=== PATIENT | male | born 1970 | race Caucasian/White ===

== ENCOUNTER 2020-11-24 14:16 | Outpatient (REF) | payer BC, SELFPAY | END 2020-11-24 14:17 | disposition home or self-care (01) | LOC: HO.LAB 14:16 | PROVIDERS: Visit Provider Internal Medicine | DX: Z20.822 Contact with and (suspected) exposure to COVID-19 (principal) | CPT/HCPCS: 36415; C9803; U0003; U0005 ==

== ENCOUNTER 2023-03-16 17:32 | Outpatient (REF) | payer BC, SELFPAY ==
[2023-03-17 09:36] LABS: CT PCR NOT DETECTED (Not Detect.); NG PCR NOT DETECTED (Not Detect.)
== END 2023-03-16 17:33 | disposition home or self-care (01) ==
LOC: HO.LNP 17:32
PROVIDERS: Visit Provider Nurse Practitioner Family
DX: Z20.2 Contact with and (suspected) exposure to infections with a predominantly sexual mode of transmission (principal)
CPT/HCPCS: 0353U

== ENCOUNTER 2023-03-28 09:18 | Outpatient (REF) | payer BC, SELFPAY ==
[2023-03-28 11:17] LABS: MANUAL DIFF FLAG NO
[2023-03-28 11:36] LABS: Basophils Percent Auto 0.5 % (0-2); Eosinophils Absolute Auto 0.1 X10*3/uL (0.0-0.4); Eosinophils Percent Auto 1.6 % (0-4); Hematocrit 49.2 % (42.0-52.0); Hemoglobin 16.1 g/dl (14.0-18.0); Imm Gran Abs Auto 0.04 X10*3/uL (0.00-0.03); Imm Gran Pct Auto 0.5 % (0.0-0.4); Lymphocytes Percent Auto 37.3 % (20-40); Mean Corpuscular HGB Conc 32.7 g/dl (31.0-36.0); Mean Corpuscular Hemoglobin 28.5 pg (27.0-33.0); Mean Corpuscular Volume 87.1 fL (80.0-98.0); Mean Platelet Volume 9.5 fL (9.4-12.4); Monocytes Absolute Auto 0.6 X10*3/uL (0.1-1.2); Monocytes Percent Auto 6.8 % (2-11); Neutrophils Absolute Auto 4.3 x10*3/uL (2.0-8.3); Neutrophils Percent Auto 53.3 % (45-73); Platelet Count 266 X10*3/uL (160-400); Red Blood Count 5.65 X10*6/uL (4.60-5.80); Red Cell Distribution Width 12.9 % (11.0-16.0); White Blood Count 8.1 X10*3/uL (4.8-10.8)
[2023-03-28 12:01] LABS: Lipase 28 U/L (8-78)
== END 2023-03-28 09:19 | disposition home or self-care (01) ==
LOC: HO.WFDLDS 09:18
PROVIDERS: Visit Provider Nurse Practitioner Family
DX: R10.9 Unspecified abdominal pain (principal)
CPT/HCPCS: 36415; 83690; 85025

== ENCOUNTER 2023-08-04 11:24 | Emergency (ER) | payer BC, SELFPAY ==
--- NOTE | ~2023-08-04 | XR_ITS ---
EXAMINATION: XR HAND, LEFT CLINICAL INFORMATION: Crush injury third and fourth fingers COMPARISON: None available. TECHNIQUE: PA, lateral, and oblique views of the left hand. FINDINGS: No acute visible fracture or dislocation. Joint spaces and alignment are maintained. Soft tissues are unremarkable. XR/XR hand LT min 3V IMPRESSION: No acute visible fracture or dislocation.
[2023-08-04 11:35] VITALS: BP 157/102; PULSE 84; RESP 18; TEMP 36; O2SAT 96; BMI 39.5
--- NOTE | 2023-08-04 11:36 | ED_ITS ---
HPI - General Adult General Chief complaint: Extremity Injury, Upper Stated complaint: crushed L hand fingers Time Seen by Provider: 08/04/23 11:45 Source: patient, RN notes reviewed and old records reviewed Mode of arrival: ambulatory History of Present Illness HPI narrative: 53-year-old male with no significant past medical history presenting to the ED complaining of crush wound to left 3rd and 4th digits s/p fixing exercise bike [employer]. States was trying to fix bike and looked otherwise and hand got caught in mick system. Tetanus up-to-date. Reports associated numbness/paresthesias. Denies injury to other area Onset (ago): hour(s) Related Data Home Medications Medication Instructions Recorded Confirmed clonidine HCl 0.1 mg tablet 0.1 mg PO BEDTIME 03/16/23 03/28/23 doxycycline hyclate 100 mg capsule 100 mg PO BID 03/16/23 03/28/23 gabapentin 100 mg capsule 100 mg PO BID 03/16/23 03/28/23 meloxicam 15 mg tablet 15 mg PO DAILY 03/16/23 03/28/23 omeprazole 20 mg capsule,delayed 0 mg PO BID 03/16/23 03/28/23 release rosuvastatin 40 mg tablet 40 mg PO DAILY 03/16/23 03/28/23 tizanidine 4 mg tablet 4 mg PO TID 03/16/23 03/28/23 Previous Rx's Medication Instructions Recorded doxycycline monohydrate 100 mg 100 mg PO BID 14 days #28 caps 03/16/23 capsule (Monodox) cephalexin 500 mg capsule 500 mg PO QID 7 days #28 caps 08/04/23 hydrocodone 5 mg-acetaminophen 325 1 tab PO Q8H PRN pain, severe 3 08/04/23 mg tablet days #9 tabs Allergies Allergy/AdvReac Type Severity Reaction Status Date / Time tramadol [From ULTRAM] AdvReac Unknown DELUSIONAL Verified 03/28/23 09:00 Review of Systems 2 Review of Systems: Constitutional: No Fever, No Chills ENT/Mouth: No Ear Pain, No Nasal Congestion, No sore throat, No Rhinorrhea, No Swallowing Difficulty Cardiovascular: No Chest Pain, No SOB Respiratory: No Cough, No Sputum Gastrointestinal: No Nausea, No Vomiting, No Abdominal pain Genitourinary: No Dysuria, No Urinary Frequency, No Hematuria, No Flank Pain Musculoskeletal: + joint pain, No Myalgias, + Joint Swelling Skin: +skin Lesions, No rash Neuro: No Weakness, + Numbness, + Paresthesias Yes all other systems are reviewed and are negative Constitutional: Constitutional: Reports as per HPI [facility] Past Medical History Attestation statement: The following information was validated with the patient. Source: old records reviewed Social History Social History Patient Tobacco Use Status: Never used Tobacco Advance Directives: No Physical Exam ED Vital Signs: Vital Signs - 24 hr 08/04/23 11:35 Temperature 96.8 F Pulse Rate 84 Respiratory Rate 18 Blood Pressure 157/102 H Pulse Oximetry 96 Oxygen Delivery Method Room Air BMI result Body Mass Index 39.5 Const General: cooperative, healthy appearing and no acute distress Orientation/consciousness: patient oriented x3 Limitations: no limitations HENMT Head: Yes normal to inspection and Yes atraumatic Ears: hearing grossly normal bilaterally General nose exam: Normal external nose present Face and sinus: Yes normal facial exam Eyes General: appearance normal, both eyes and all related structures EOM: EOMs intact bilaterally Neck Neck: Yes normal visual inspection and Yes no meningeal signs Resp Effort & Inspection: normal respiratory effort and no respiratory distress Cardio Rate: regular rate Skin Rashes: no rashes Neuro General: patient oriented x3, tone normal and no meningeal signs Cranial nerves: Yes CN's II-XII intact bilaterally Gait exam (Neuro): Normal gait present Extrem Other: Left distal 3rd digit with swelling and tenderness greatest to distal palmar aspect. No fluctuance/induration or open wounds. No nail involvement Left 4th digit with proximal nail dislodged, nail bed intact. Small adjacent laceration. + subungual hematoma. Tender to palpation Full range of motion intact to all digits with pain. Finger to thumb opposition intact. Neurovascularly intact. Course Course Course Narrative: This is a rapid medical exam: Additional HPI, ROS, PE not included below will be deferred to primary provider. Patient is a 53-year-old right-hand dominant male presenting to the ED with crush injury to left 3rd and 4th fingers [employer]. States he was attempting to fix an exercise bike and was looking the other way and left hand got caught between the belt and mechanism. Damage to nail of 4th finger, pain and swelling. States his tetanus is UTD within past 5 years. Plan: x-ray XR hand LT min 3V IMPRESSION: No acute visible fracture or dislocation. > nail was placed back in to nail bed without complication. Subungual hematoma drained with nail trephination >Results discussed with patient including worrisome signs and symptoms and strict return precautions, and when to return to the emergency department. They verbalized understanding and feel safe for discharge at this time. Medications Administered Discontinued Medications Generic Name Dose Route Start Last Admin Trade Name Steven PRN Reason Stop Dose Admin Lidocaine HCl 10 ml 08/04/23 11:51 08/04/23 12:29 Lidocaine Hcl 1 % Mpf 5 Ml Vial INFILTRATI 08/04/23 11:52 10 ml ONCE ONE Administration Procedures Nail Trephination Location (finger): left and ring Sterile prep: betadine Method of drainage: nail cautery Procedure successful: Yes Patient tolerated procedure: No Complications Nerve Block Nerve Block 1: Local Anesthetic: lidocaine 1% Amount of anesthesia used (mL): 2.5 Side: left Nerve Blocks: digital Patient Tolerated Procedure: well and no complications Nerve Block 2: Local Anesthetic: lidocaine 1% Amount of anesthesia used (mL): 2.5 Side: left Nerve Blocks: digital Procedure Successful: Yes Patient Tolerated Procedure: well Complications: none Medical Decision Making Medical Decision Making MDM Narrative: 53-year-old male with no significant past medical history presenting to the ED complaining of crush wound to left 3rd and 4th digits s/p fixing exercise bike [employer]. On exam vital signs stable, in NAD, nontoxic appearing with physical exam as above with crush wound to left 3rd and 4th digit with nail involvement of the ring finger. Nail bed not disrupted. Sensation and range of motion intact. Neurovascularly intact. Concern for fracture/crush. Tetanus is up-to-date. No evidence of cellulitis or infection at this time Plan: X-rays, digital block, relocate nail. Case was discussed with the ED attending Dr. Donovan who evaluated patient and performed nail reduction Please refer to course for remaining clinical decision making, interpretation of labs/imaging results, and discussions with consultants and/or family members. Differential Diagnosis Differential Diagnoses: The differential diagnosis associated with the presentation includes As above Radiology Impression Discussion of test interpretation with radiology: I have reviewed the radiologist's reading. Independent Historian Clinical information obtained from an independent historian. History obtained from or confirmed by: Spouse External Record Review External record reviewed: Inpatient record, Office record, Outpatient record, Prior outpatient labs, Prior outpatient radiology, Primary care record and Outside ED record Tests considered The following testing was considered but not selected: As above Prescription Management I considered prescription management with: Pain Medication and Antibiotic Discharge Plan Discharge Clinical Impression: Crush injury, Injury of nail bed of finger, Subungual hematoma of fingernail Patient Disposition: Home, Self-Care Instructions: Subungual Hematoma (ED), Crush Injury (ED) Additional Instructions: Your x-ray does not show fracture Your nail was placed back into your nail bed Keep dressing on for 24 hours, please remove tomorrow morning and evaluate, apply topical antibiotic ointment like bacitracin or Neosporin. Keep dry and clean Keflex as an oral antibiotic please take as prescribed Follow-up with Orthopedics If symptoms persist or worsen, swelling persist area has drainage or pus or you have fever return to the ED Prescriptions: New cephalexin 500 mg capsule 500 mg PO QID 7 Days Qty: 28 0RF hydrocodone-acetaminophen 5-325 mg tablet 1 tab PO Q8H PRN (Reason: pain, severe) 3 Days Qty: 9 0RF Rx Instructions: Partial Fill upon patient request. No Action gabapentin 100 mg capsule 100 mg PO BID meloxicam 15 mg tablet 15 mg PO DAILY omeprazole 20 mg capsule,delayed release(DR/EC) 0 mg PO BID rosuvastatin 40 mg tablet 40 mg PO DAILY tizanidine 4 mg tablet 4 mg PO TID clonidine HCl 0.1 mg tablet 0.1 mg PO BEDTIME doxycycline hyclate 100 mg capsule 100 mg PO BID doxycycline monohydrate [Monodox] 100 mg capsule 100 mg PO BID 14 Days Qty: 28 0RF Rx Instructions: May dispense medication equivalent accepted by patient's insurance Referrals: [facility] [place] [facility] [Provider Group] Discharge Date/Time: 08/04/23 12:59
[2023-08-04] MEDS: Lidocaine HCl 1 % MPF 5 ML VIAL 10 ML INFILTRATI (12:29)
== END 2023-08-04 12:59 | disposition home or self-care (01) ==
PROVIDERS: Emergency Provider Internal Medicine
DX: S60.142A Contusion of left ring finger with damage to nail, initial encounter (principal); S60.132A Contusion of left middle finger with damage to nail, initial encounter; W31.89XA Contact with other specified machinery, initial encounter; Y93.9 Activity, unspecified; Y92.9 Unspecified place or not applicable; Y99.9 Unspecified external cause status
CPT/HCPCS: 11730; 73130; 99283; 99284

== ENCOUNTER 2024-03-21 19:30 | Emergency (ER) | payer BC, SELFPAY ==
--- NOTE | ~2024-03-21 | XR_ITS ---
EXAMINATION: XR CHEST 2 VIEWS CLINICAL INFORMATION: Shortness of breath. COMPARISON: None. TECHNIQUE: Frontal and lateral views of the chest were obtained. FINDINGS: The heart, great vessels, pulmonary vasculature and mediastinum are normal. The lungs show no focal infiltrate, effusion or pneumothorax. There is mild elevation of the right hemidiaphragm. There is no acute osseous abnormality. Cervicothoracic orthopedic hardware is noted. XR/XR chest 2V IMPRESSION: No active cardiopulmonary disease.
[2024-03-21 19:39] VITALS: BP 151/88; PULSE 108; RESP 24; TEMP 37.1; O2SAT 97; BMI 41.4
--- NOTE | 2024-03-21 19:40 | ED.SOB ---
HPI - SOB/Dyspnea General Chief Complaint: Dyspnea Stated Complaint: Difficulty breathing Time Seen by Provider: 03/22/24 00:50 History of Present Illness HPI Narrative: see additional note from 03/22/2024 Related Data Home Medications ?Medication ?Instructions ?Recorded ?Confirmed clonidine HCl 0.1 mg tablet 0.1 mg PO BEDTIME 03/16/23 03/28/23 doxycycline hyclate 100 mg capsule 100 mg PO BID 03/16/23 03/28/23 gabapentin 100 mg capsule 100 mg PO BID 03/16/23 03/28/23 meloxicam 15 mg tablet 15 mg PO DAILY 03/16/23 03/28/23 omeprazole 20 mg capsule,delayed 0 mg PO BID 03/16/23 03/28/23 release rosuvastatin 40 mg tablet 40 mg PO DAILY 03/16/23 03/28/23 tizanidine 4 mg tablet 4 mg PO TID 03/16/23 03/28/23 Previous Rx's ?Medication ?Instructions ?Recorded doxycycline monohydrate 100 mg 100 mg PO BID 14 days #28 caps 03/16/23 capsule (Monodox) cephalexin 500 mg capsule 500 mg PO QID 7 days #28 caps 08/04/23 hydrocodone 5 mg-acetaminophen 325 1 tab PO Q8H PRN pain, severe 3 08/04/23 mg tablet days #9 tabs albuterol sulfate 90 mcg/actuation 2 puff inhalation Q4-6H PRN 03/22/24 aerosol inhaler (ProAir HFA) shortness of breath or wheezing #8.5 grams amoxicillin 875 mg-potassium 1 tab PO BID #20 tabs 03/22/24 clavulanate 125 mg tablet prednisone 10 mg tablets in a dose 10 mg PO DIRECTED #48 ea 03/22/24 pack Allergies Allergy/AdvReac Type Severity Reaction Status Date / Time tramadol [From ULTRAM] AdvReac Unknown DELUSIONAL Verified 03/21/24 19:42 [facility] Social History Social History Patient Tobacco Use Status: Never used Tobacco Use of substances other than those prescribed or required for medical reasons: No Advance Directives: No Advance Directives Information Provided: No Do you have a plan to hurt others: No Plan Physical Exam Vital Signs: Vital Signs: Last Vital Signs Temp 98.9 F 03/22/24 02:09 Pulse 115 H 03/22/24 02:09 Resp 16 03/22/24 02:09 BP 140/77 H 03/22/24 02:09 Pulse Ox 99 03/22/24 02:09 O2 Del Method Room Air 03/22/24 02:09 BMI result Body Mass Index 41.4 Course Course Course Narrative: This is an RME performed by William Allen CNP: Additional HPI, ROS, PE not included below will be deferred to primary provider. Patient is a 53-year-old male who presents to the emergency department for evaluation of difficulty breathing. He Reports he is currently being worked up outpatient with [place] [facility] for interstitial lung disease, has been experiencing difficulty breathing for 1.5 weeks, nonproductive cough. He went to urgent care yesterday, was advised to use a Neti pot and given a prescription for benzonatate without improvement. Physical exam: Lung sounds with rhonchi bilaterally no wheezing, speaking clear full sentences, no tripoding, no tachypnea, no hypoxia. Plan: Viral panel, CXR, EKG Medications Administered Discontinued Medications Generic Name Dose Route Start Last Admin Trade Name Freq PRN Reason Stop Dose Admin Acetaminophen 650 mg 03/22/24 01:28 03/22/24 01:32 Acetaminophen 325 Mg Tablet PO 03/22/24 01:29 650 mg ONCE ONE Administration Amoxicillin/Clavulanate Potassium 875 mg 03/22/24 01:05 03/22/24 01:32 Amoxicillin/Potassium Clav 875 Mg Tablet PO 03/22/24 01:06 875 mg ONCE ONE Administration Albuterol Sulfate 5 mg/ 0 mg 03/22/24 01:04 03/22/24 01:14 Albuterol/Ipratropium 3 ml INHALE 03/22/24 01:05 7.5 each ONCE ONE Administration Dexamethasone 10 mg 03/22/24 01:04 03/22/24 01:32 Dexamethasone 2 Mg Tablet PO 03/22/24 01:05 10 mg ONCE ONE Administration Medical Decision Making Lab Data 03/21/24 23:23 03/21/24 23:23 Labs: Lab Results 03/21/24 03/21/24 Range/Units 20:18 23:23 WBC 6.7 (4.8-10.8) X10*3/uL RBC 5.05 (4.60-5.80) X10*6/uL Hgb 14.8 (14.0-18.0) g/dl Hct 44.3 (42.0-52.0) % MCV 87.7 (80.0-98.0) fL MCH 29.3 (27.0-33.0) pg MCHC 33.4 (31.0-36.0) g/dl RDW 13.2 (11.0-16.0) % Plt Count 219 (160-400) X10*3/uL MPV 8.7 L (9.4-12.4) fL Immature Gran % (Auto) 0.3 (0.0-0.4) % Neut % (Auto) 62.8 (45-73) % Lymph % (Auto) 22.0 (20-40) % [place] % (Auto) 13.2 H (2-11) % Eos % (Auto) 1.3 (0-4) % Baso % (Auto) 0.4 (0-2) % Lymph # (Auto) 1.5 (1.2-4.9) X10*3/uL [place] # (Auto) 0.9 (0.1-1.2) X10*3/uL Eos # (Auto) 0.1 (0.0-0.4) X10*3/uL Baso # (Auto) 0.0 (0.0-0.2) X10*3/uL Abs Immat Gran (auto) 0.02 (0.00-0.03) X10*3/uL Absolute Neuts (auto) 4.2 (2.0-8.3) x10*3/uL Absolute Nucleated RBC 0.000 (0.0-0.012) X10*3/uL Nucleated RBC % (auto) 0.0 (0.0-0.2) /100WBC Sodium 140 (135-145) mmol/L Potassium 3.6 (3.3-5.1) mmol/L Chloride 107 (96-108) mmol/L Carbon Dioxide 23 (22-29) mmol/L Anion Gap 14 (12-20) BUN 15 (9-16) mg/dL Creatinine 0.76 (0.5-1.4) mg/dL Estim Creat Clear Calc 145.3 Estimated GFR > 60 Random Glucose 113 (60-115) mg/dL Calcium 9.2 (8.4-10.2) mg/dL Total Bilirubin 0.3 (0.0-1.0) mg/dL AST 18 (5-37) U/L ALT 29 (0-40) U/L Alkaline Phosphatase 76 (39-117) U/L Troponin I High Sens < 2.7 (<3.5-35.0) ng/L Total Protein 7.7 (6.5-8.0) g/dL Albumin 4.3 (3.5-5.0) g/dL Influenza Type A (PCR) NEGATIVE (Negative) Influenza Type B (PCR) NEGATIVE (Negative) RSV RNA Qual (PCR) NEGATIVE (Negative) SARS-CoV-2 RNA (RT-PCR) NEGATIVE (Negative) Discharge Plan Discharge Clinical Impression: Acute bronchitis Patient Disposition: Home, Self-Care Instructions: Acute Bronchitis (ED) Additional Instructions: Take antibiotic as prescribed Prednisone as prescribed Continue to use albuterol inhaler 2 puffs every 4-6 hours as needed Continue Tessalon Perles as needed for severe cough Follow with your PCP if not better Prescriptions: New amoxicillin-pot clavulanate 875-125 mg tablet 1 tab PO BID Qty: 20 0RF prednisone 10 mg tablets,dose pack 10 mg PO DIRECTED Qty: 48 0RF Rx Instructions: see taper instructions; 40 mg Daily x3 days, 30 mg daily x3 days, 20 mg daily x3 days, 10 mg daily x3 days albuterol sulfate [ProAir HFA] 90 mcg/actuation HFA aerosol inhaler 2 puff inhalation Q4-6H PRN (Reason: shortness of breath or wheezing) Qty: 8.5 0RF No Action cephalexin 500 mg capsule 500 mg PO QID 7 Days Qty: 28 0RF hydrocodone-acetaminophen 5-325 mg tablet 1 tab PO Q8H PRN (Reason: pain, severe) 3 Days Qty: 9 0RF Rx Instructions: Partial Fill upon patient request. gabapentin 100 mg capsule 100 mg PO BID meloxicam 15 mg tablet 15 mg PO DAILY omeprazole 20 mg capsule,delayed release(DR/EC) 0 mg PO BID rosuvastatin 40 mg tablet 40 mg PO DAILY tizanidine 4 mg tablet 4 mg PO TID clonidine HCl 0.1 mg tablet 0.1 mg PO BEDTIME doxycycline hyclate 100 mg capsule 100 mg PO BID doxycycline monohydrate [Monodox] 100 mg capsule 100 mg PO BID 14 Days Qty: 28 0RF Rx Instructions: May dispense medication equivalent accepted by patient's insurance Interventions: ED Discharge Assessment Last Done: 03/22/24 02:09 Discharge Date/Time: 03/22/24 02:10 Print Language: Portuguese
--- NOTE | 2024-03-21 19:44 | ECG_ITS ---
Test Reason : DYSPENA Blood Pressure : / mmHG Vent. Rate : 097 BPM Atrial Rate : 097 BPM P-R Int : 152 ms QRS Dur : 086 ms QT Int : 324 ms P-R-T Axes : 046 -18 037 degrees QTc Int : 411 ms Normal sinus rhythm Low voltage QRS Borderline ECG No previous ECGs available Referred By: Mariposa Allen Electronically Signed By:RAMIRO NAJERA MD
--- NOTE | 2024-03-21 20:54 | MHC.EDTECH ---
Patient ekg taken and was read by provider ,rsv/covid swab collected and sent to lab .
[2024-03-21 21:16] LABS: Influenza A PCR NEGATIVE (Negative); Influenza B PCR NEGATIVE (Negative); Resp Syncy Virus RNA Qual PCR NEGATIVE (Negative); SARS COV2 PCR INHOUSE NEGATIVE (Negative)
--- NOTE | 2024-03-21 23:25 | MHC.EDTECH ---
Patient blood drawn and sent to lab .
[2024-03-21 23:27] LABS: MANUAL DIFF FLAG NO
[2024-03-21 23:30] LABS: Basophils Percent Auto 0.4 % (0-2); Eosinophils Absolute Auto 0.1 X10*3/uL (0.0-0.4); Eosinophils Percent Auto 1.3 % (0-4); Hematocrit 44.3 % (42.0-52.0); Hemoglobin 14.8 g/dl (14.0-18.0); Imm Gran Abs Auto 0.02 X10*3/uL (0.00-0.03); Imm Gran Pct Auto 0.3 % (0.0-0.4); Lymphocytes Absolute Auto 1.5 X10*3/uL (1.2-4.9); Mean Corpuscular HGB Conc 33.4 g/dl (31.0-36.0); Mean Corpuscular Hemoglobin 29.3 pg (27.0-33.0); Mean Corpuscular Volume 87.7 fL (80.0-98.0); Mean Platelet Volume 8.7 fL (9.4-12.4); Monocytes Absolute Auto 0.9 X10*3/uL (0.1-1.2); Monocytes Percent Auto 13.2 % (2-11); Neutrophils Absolute Auto 4.2 x10*3/uL (2.0-8.3); Neutrophils Percent Auto 62.8 % (45-73); Platelet Count 219 X10*3/uL (160-400); Red Blood Count 5.05 X10*6/uL (4.60-5.80); Red Cell Distribution Width 13.2 % (11.0-16.0); White Blood Count 6.7 X10*3/uL (4.8-10.8)
[2024-03-21 23:47] LABS: Alanine Aminotransferase 29 U/L (0-40); Albumin Level 4.3 g/dL (3.5-5.0); Alkaline Phosphatase 76 U/L (39-117); Anion Gap 14 (12-20); Aspartate Amino Transferase 18 U/L (5-37); Bilirubin Total 0.3 mg/dL (0.0-1.0); Blood Urea Nitrogen 15 mg/dL (9-16); Calcium 9.2 mg/dL (8.4-10.2); Carbon Dioxide 23 mmol/L (22-29); Chloride 107 mmol/L (96-108); Creatinine Clr Calc Pharmacy 145.3; Estimated Glomerular Filt Rate > 60; Glucose Random 113 mg/dL (60-115); Potassium 3.6 mmol/L (3.3-5.1); Sodium 140 mmol/L (135-145); Total Protein 7.7 g/dL (6.5-8.0)
[2024-03-21 23:56] LABS: Troponin-I High Sensitivity < 2.7 ng/L (<3.5-35.0)
[2024-03-22] VITALS: BP 179/86; PULSE 96; RESP 18; TEMP 37.1; O2SAT 96
--- NOTE | 2024-03-22 01:09 | ED_ITS ---
HPI - SOB/Dyspnea General Chief Complaint: Dyspnea Stated Complaint: Difficulty breathing Time Seen by Provider: 03/22/24 00:50 Source: patient Mode of arrival: ambulatory Limitations: no limitations History of Present Illness ED Provider: noa HOLGUIN Narrative: Patient's history of? ILD been sick for last 10 days prescribed Brinda Luciano by urgent care nurse practitioner without much relief feels congested and blocked dry cough and wheezing using inhaler without much relief Related Data Home Medications ?Medication ?Instructions ?Recorded ?Confirmed clonidine HCl 0.1 mg tablet 0.1 mg PO BEDTIME 03/16/23 03/28/23 doxycycline hyclate 100 mg capsule 100 mg PO BID 03/16/23 03/28/23 gabapentin 100 mg capsule 100 mg PO BID 03/16/23 03/28/23 meloxicam 15 mg tablet 15 mg PO DAILY 03/16/23 03/28/23 omeprazole 20 mg capsule,delayed 0 mg PO BID 03/16/23 03/28/23 release rosuvastatin 40 mg tablet 40 mg PO DAILY 03/16/23 03/28/23 tizanidine 4 mg tablet 4 mg PO TID 03/16/23 03/28/23 Previous Rx's ?Medication ?Instructions ?Recorded doxycycline monohydrate 100 mg 100 mg PO BID 14 days #28 caps 03/16/23 capsule (Monodox) cephalexin 500 mg capsule 500 mg PO QID 7 days #28 caps 08/04/23 hydrocodone 5 mg-acetaminophen 325 1 tab PO Q8H PRN pain, severe 3 08/04/23 mg tablet days #9 tabs albuterol sulfate 90 mcg/actuation 2 puff inhalation Q4-6H PRN 03/22/24 aerosol inhaler (ProAir HFA) shortness of breath or wheezing #8.5 grams amoxicillin 875 mg-potassium 1 tab PO BID #20 tabs 03/22/24 clavulanate 125 mg tablet prednisone 10 mg tablets in a dose 10 mg PO DIRECTED #48 ea 03/22/24 pack Allergies Allergy/AdvReac Type Severity Reaction Status Date / Time tramadol [From ULTRAM] AdvReac Unknown DELUSIONAL Verified 03/21/24 19:42 Review of Systems 2 Review of Systems: Yes all other systems are reviewed and are negative PMFSH Social History Social History Patient Tobacco Use Status: Never used Tobacco Advance Directives: No Advance Directives Information Provided: No Do you have a plan to hurt others: No Plan Physical Exam 2 Vital Signs: Vital Signs: Last Vital Signs Temp 98.8 F 03/22/24 00:00 Pulse 96 03/22/24 01:15 Resp 18 03/22/24 01:15 BP 179/86 H 03/22/24 00:00 Pulse Ox 96 03/22/24 00:00 O2 Del Method Room Air 03/22/24 00:00 BMI result Body Mass Index 41.4 Appearance: Alert. Oriented X3. No acute distress. Eyes: No pallor or icterus ENT: Pharynx normal. Oral Mucosa moist Neck: Normal inspection. Neck supple. CVS: Normal heart rate and rhythm. Pulses normal. Respiratory: No respiratory distress. Equal air entry bilateral, bilateral wheezing no rales Abdomen: Soft and nontender. Skin: Skin warm and dry. Normal skin color. Normal skin turgor. Extremities: No lower extremity edema. No calf tenderness Neuro: Oriented X 3. Medications Administered Discontinued Medications Generic Name Dose Route Start Last Admin Trade Name Freq PRN Reason Stop Dose Admin Acetaminophen 650 mg 03/22/24 01:28 03/22/24 01:32 Acetaminophen 325 Mg Tablet PO 03/22/24 01:29 650 mg ONCE ONE Administration Amoxicillin/Clavulanate Potassium 875 mg 03/22/24 01:05 03/22/24 01:32 Amoxicillin/Potassium Clav 875 Mg Tablet PO 03/22/24 01:06 875 mg ONCE ONE Administration Albuterol Sulfate 5 mg/ 0 mg 03/22/24 01:04 03/22/24 01:14 Albuterol/Ipratropium 3 ml INHALE 03/22/24 01:05 7.5 each ONCE ONE Administration Dexamethasone 10 mg 03/22/24 01:04 03/22/24 01:32 Dexamethasone 2 Mg Tablet PO 03/22/24 01:05 10 mg ONCE ONE Administration Medical Decision Making Medical Decision Making [facility] Narrative: Patient with interstitial lung disease with bronchitis , x-ray negative for infiltrate will prescribe prednisone and antibiotics Augmentin Lab Data [facility] Lab Attestation statement: I reviewed the patient's lab results. 03/21/24 23:23 03/21/24 23:23 Labs: Lab Results 03/21/24 03/21/24 Range/Units 20:18 23:23 WBC 6.7 (4.8-10.8) X10*3/uL RBC 5.05 (4.60-5.80) X10*6/uL Hgb 14.8 (14.0-18.0) g/dl Hct 44.3 (42.0-52.0) % MCV 87.7 (80.0-98.0) fL MCH 29.3 (27.0-33.0) pg MCHC 33.4 (31.0-36.0) g/dl RDW 13.2 (11.0-16.0) % Plt Count 219 (160-400) X10*3/uL MPV 8.7 L (9.4-12.4) fL Immature Gran % (Auto) 0.3 (0.0-0.4) % Neut % (Auto) 62.8 (45-73) % Lymph % (Auto) 22.0 (20-40) % [place] % (Auto) 13.2 H (2-11) % Eos % (Auto) 1.3 (0-4) % Baso % (Auto) 0.4 (0-2) % Lymph # (Auto) 1.5 (1.2-4.9) X10*3/uL [place] # (Auto) 0.9 (0.1-1.2) X10*3/uL Eos # (Auto) 0.1 (0.0-0.4) X10*3/uL Baso # (Auto) 0.0 (0.0-0.2) X10*3/uL Abs Immat Gran (auto) 0.02 (0.00-0.03) X10*3/uL Absolute Neuts (auto) 4.2 (2.0-8.3) x10*3/uL Absolute Nucleated RBC 0.000 (0.0-0.012) X10*3/uL Nucleated RBC % (auto) 0.0 (0.0-0.2) /100WBC Sodium 140 (135-145) mmol/L Potassium 3.6 (3.3-5.1) mmol/L Chloride 107 (96-108) mmol/L Carbon Dioxide 23 (22-29) mmol/L Anion Gap 14 (12-20) BUN 15 (9-16) mg/dL Creatinine 0.76 (0.5-1.4) mg/dL Estim Creat Clear Calc 145.3 Estimated GFR > 60 Random Glucose 113 (60-115) mg/dL Calcium 9.2 (8.4-10.2) mg/dL Total Bilirubin 0.3 (0.0-1.0) mg/dL AST 18 (5-37) U/L ALT 29 (0-40) U/L Alkaline Phosphatase 76 (39-117) U/L Troponin I High Sens < 2.7 (<3.5-35.0) ng/L Total Protein 7.7 (6.5-8.0) g/dL Albumin 4.3 (3.5-5.0) g/dL Influenza Type A (PCR) NEGATIVE (Negative) Influenza Type B (PCR) NEGATIVE (Negative) RSV RNA Qual (PCR) NEGATIVE (Negative) SARS-CoV-2 RNA (RT-PCR) NEGATIVE (Negative) Independent Interpretation I performed an independent interpretation of an: EKG and Plain X-Ray Interpretation: Normal sinus rhythm with heart rate 97 beats per minute normal intervals no acute STT wave changes no acute ischemia Radiology Impression Discussion of test interpretation with radiology: I have reviewed the radiologist's reading. Discharge Plan Discharge Clinical Impression: Acute bronchitis Patient Disposition: Home, Self-Care Instructions: Acute Bronchitis (ED) Additional Instructions: Take antibiotic as prescribed Prednisone as prescribed Continue to use albuterol inhaler 2 puffs every 4-6 hours as needed Continue Tessalon Perles as needed for severe cough Follow with your PCP if not better Prescriptions: New amoxicillin-pot clavulanate 875-125 mg tablet 1 tab PO BID Qty: 20 0RF prednisone 10 mg tablets,dose pack 10 mg PO DIRECTED Qty: 48 0RF Rx Instructions: see taper instructions; 40 mg Daily x3 days, 30 mg daily x3 days, 20 mg daily x3 days, 10 mg daily x3 days albuterol sulfate [ProAir HFA] 90 mcg/actuation HFA aerosol inhaler 2 puff inhalation Q4-6H PRN (Reason: shortness of breath or wheezing) Qty: 8.5 0RF No Action cephalexin 500 mg capsule 500 mg PO QID 7 Days Qty: 28 0RF hydrocodone-acetaminophen 5-325 mg tablet 1 tab PO Q8H PRN (Reason: pain, severe) 3 Days Qty: 9 0RF Rx Instructions: Partial Fill upon patient request. gabapentin 100 mg capsule 100 mg PO BID meloxicam 15 mg tablet 15 mg PO DAILY omeprazole 20 mg capsule,delayed release(DR/EC) 0 mg PO BID rosuvastatin 40 mg tablet 40 mg PO DAILY tizanidine 4 mg tablet 4 mg PO TID clonidine HCl 0.1 mg tablet 0.1 mg PO BEDTIME doxycycline hyclate 100 mg capsule 100 mg PO BID doxycycline monohydrate [Monodox] 100 mg capsule 100 mg PO BID 14 Days Qty: 28 0RF Rx Instructions: May dispense medication equivalent accepted by patient's insurance Print Language: Sami
[2024-03-22] MEDS: Albuterol Sulfate 5 MG, Albuterol/Iprat 2.5/0.5MG 3 ML 3 ML INHALE (01:14)
[2024-03-22 01:15] VITALS: PULSE 96; RESP 18; O2SAT 96
[2024-03-22] MEDS: Acetaminophen 325 MG TABLET 650 MG PO (01:32)
[2024-03-22] MEDS: dexAMETHasone 2 MG TABLET 10 MG PO (01:32)
[2024-03-22] MEDS: Amoxicillin/Potassium Clav 875 MG TABLET PO (01:32)
--- NOTE | 2024-03-22 01:35 | PC.NURSE ---
breathing treatment completed, medicated per Dec.
[2024-03-22 02:00] VITALS: BP 140/77; PULSE 115; RESP 16; TEMP 37.2
[2024-03-22 02:09] VITALS: BP 140/77; PULSE 115; RESP 16; TEMP 37.2; O2SAT 99
== END 2024-03-22 02:10 | disposition home or self-care (01) ==
PROVIDERS: Nurse Practitioner Family; Emergency Provider Internal Medicine
DX: J20.9 Acute bronchitis, unspecified (principal); R94.31 Abnormal electrocardiogram [ECG] [EKG]; R06.02 Shortness of breath; Z79.899 Other long term (current) drug therapy; Z03.818 Encounter for observation for suspected exposure to other biological agents ruled out
CPT/HCPCS: 0241U; 36415; 71046; 80053; 84484; 85025; 93005; 94640; 99284; 99285; J8540

== ENCOUNTER → 2024-03-21 19:44 | Outpatient (BNV) | payer BC, SELFPAY | PROVIDERS: Emergency Provider Internal Medicine; Visit Provider Internal Medicine Cardiovascular Disease | DX: R06.00 Dyspnea, unspecified (principal) | CPT/HCPCS: 93010 ==

== ENCOUNTER 2024-08-20 09:51 | Outpatient (AMB) | payer BC, SELFPAY ==
--- NOTE | 2024-08-20 09:58 | AM.OFFWIN_ITS ---
Intake Vital Signs 08/20/24 10:05 08/20/24 10:30 Height 5 ft 10 in Weight 253 lb 2 oz BMI 36.3 BP 116/72 Blood Pressure Location Lt brachial Position Sitting Respiration 13 Pulse 102 H 99 Pulse Source Pulse Oximeter Auscultation Temp 99.2 F Temp Source Oral Pulse Oximetry (%) 92 Oxygen Delivery Method Simple Mask Room Air Intake Visit Reasons: EST/SINUS INFECTION Intake Note: Patient complaining of pressure on sinus, coughing, and headache x 3 days Patient Tobacco Use Status: Never used Tobacco Allergies No Known Allergies Allergy (Verified 08/20/24 10:09) Medication List - Last Reconciled 08/20/24 by Tg Jovel, [employer]PING [employer]ACHINE OPERATOR- albuterol sulfate 90 mcg/actuation (ProAir HFA) 2 puffs inhalation Q4-6H PRN clonidine HCl 0.1 mg PO BEDTIME diclofenac sodium 75 mg PO BID lorazepam 1 mg PO DAILY PRN omeprazole 0 mg PO BID oxycodone 5 mg PO QID PRN trazodone 100 mg PO BEDTIME PRN Do you need a note to return to daycare/school/sports/work: Yes HPI HPI Comments History of Present Illness Details 54-year-old male with interstitial lung disease here today with flu- like symptoms that started 3 days ago. Reports that his symptoms include sinus pressure, pressure behind his eyes, headache, dry cough. He has been using Sudafed, Mucinex PO, NyQuil and Mucinex nasal spray to help with his symptoms. Reports that his throat is sore only from coughing. He denies any ear pain. Exam Awake alert NAD Sclera clear, conjunctiva mildly injected bilat Nares with yellow discharge, turbinates within normal limits, frontal sinus tenderness with palpation bilat TM intact and clear on R, erythematous and injected on L MMM, pharynx WNL RRR LS CTAB, dry hacking cough during exam Plan Treat with steroids and cough medication. States Innova Card did not work in the past. Viral swab obtained for flu, covid, rsv Out of work until 08/26/24 Edu on reasons to return to the office or seek add'l care This note is constructed using voice recognition software. While every effort has been made to ensure accuracy in resource engineer, still errors may have been included Sometimes, these errors may affect the content or meaning of the given sentence . Total time spent caring for the patient today was 30 minutes. This includes time spent before the visit reviewing the chart, time spent during the visit, and time spent after the visit on documentation [facility] Social History Patient Tobacco Use Status: Never used Tobacco Physical Exam Vital Signs: Last Vital Signs Temp 99.2 F 08/20/24 10:05 Pulse 99 08/20/24 10:30 Resp 13 08/20/24 10:05 BP 116/72 08/20/24 10:05 Pulse Ox 92 08/20/24 10:05 Oxygen Delivery Method Room Air 08/20/24 10:30 BMI result Body Mass Index 36.3 Results Reviewed Results Reviewed: RUN: 08/20/24 1339 PAGE 1 [facility] [address] [place] [id number] Sleeve Wheel Maker: Michael Paul M.D. Specimen Inquiry Name: Jaden Parks Age/Sex: 54/M : 1970 Unit#: [id number] Attend Dr: Tg Jovel Re08/20/24 Status: REG REF Location: [facility] Disch: SPEC : [id number] CHIKIS: 08/20/24 STATUS: COMP REQ : [id number] RECD: 08/20/[address]: Tg Jovel COMP: 08/20/24 ENTERED: 08/20/[address] [facility] [address]: ORDERED: SARS/FLU/RSV Test Result Flag Reference Influenza A PCR NEGATIVE Negative Influenza B PCR NEGATIVE Negative RSV RNA QualPCR NEGATIVE Negative SARSCOV2 RT-PCR NEGATIVE Negative All test results must be correlated with clinical findings. Negative results do not preclude SARS-CoV2, influenza A virus, influenza B virus and/or RSV infection and should not be used as the sole basis for treatment or other patient management decisions. Negative results must be combined with clinical observations, patient history, and epidemiological information. This test has not been evaluated for monitoring treatment of infection. This test has been authorized by the FDA under an Emergency Use Authorization (EUA) for use by authorized laboratories. Testing performed on the [employer] GeneXpert utilizing real-time RT-PCR. All SARS CoV2 and positive influenza A/B results are reported to [facility]. END OF REPORT Assessment & Plan Assessment & Plan (1) Acute bacterial sinusitis: Code(s): J01.90 - Acute sinusitis, unspecified; B96.89 - Other specified bacterial agents as the cause of diseases classified elsewhere Plan: . (2) Interstitial lung disease: Comment: managed by Pulm per patient Code(s): J84.9 - Interstitial pulmonary disease, unspecified Plan: / (3) Flu-like symptoms: Code(s): R68.89 - Other general symptoms and signs Plan: . Orders: Orders SARS-CoV2/FLU/RSV Today R09.89 - Other specified symptoms and signs involving the circulatory and respiratory systems Medications: New prednisone 50 mg PO DAILY 5 days 5 tabs 0RF codeine-guaifenesin 10-100 mg/5 mL 10 mL PO DAILY 7 days PRN 70 mL 0RF cough amoxicillin-pot clavulanate 875-125 mg 1 tab PO BID 7 days 14 tabs 0RF Coding Level of Care Code Est Pt Level 4 (46134) Diagnoses Acute bacterial sinusitis J01.90; B96.89 Interstitial lung disease J84.9 Flu-like symptoms R68.89
[2024-08-20 10:05] VITALS: BP 116/72; PULSE 102; RESP 13; TEMP 37.3; O2SAT 92; BMI 36.3
[2024-08-20 10:30] VITALS: PULSE 99
== END 2024-08-20 13:46 | disposition home or self-care (01) ==
PROVIDERS: Visit Provider Nurse Practitioner Family
DX: J01.90 Acute sinusitis, unspecified (principal); B96.89 Other specified bacterial agents as the cause of diseases classified elsewhere; J84.9 Interstitial pulmonary disease, unspecified; R68.89 Other general symptoms and signs

== ENCOUNTER 2024-08-20 09:51 | Outpatient (REF) | payer BC, SELFPAY ==
[2024-08-20 13:06] LABS: Influenza A PCR NEGATIVE (Negative); Influenza B PCR NEGATIVE (Negative); Resp Syncy Virus RNA Qual PCR NEGATIVE (Negative); SARS COV2 PCR INHOUSE NEGATIVE (Negative)
== END 2024-08-20 09:52 | disposition home or self-care (01) ==
LOC: HO.LNP 09:51
PROVIDERS: Visit Provider Nurse Practitioner Family
DX: J01.90 Acute sinusitis, unspecified (principal); B96.89 Other specified bacterial agents as the cause of diseases classified elsewhere; J84.9 Interstitial pulmonary disease, unspecified; R68.89 Other general symptoms and signs; R09.89 Other specified symptoms and signs involving the circulatory and respiratory systems
CPT/HCPCS: 0241U

== ENCOUNTER → 2024-09-01 10:58 | Outpatient (BNVA) | payer BC, SELFPAY | PROVIDERS: Visit Provider Nurse Practitioner Family | DX: J84.9 Interstitial pulmonary disease, unspecified (principal); R05.2 Subacute cough; Z23 Encounter for immunization | CPT/HCPCS: 90471; 90715 ==

== ENCOUNTER → 2024-09-01 10:58 | Outpatient (AMB) | payer BC, SELFPAY ==
--- NOTE | 2024-09-01 11:09 | AM.OFFWIN_ITS ---
Intake Vital Signs 09/01/24 11:13 Height 5 ft 10 in Weight 254 lb BMI 36.4 BP 124/84 Blood Pressure Location Rt brachial Position Sitting Respiration 14 Pulse 95 Pulse Source Pulse Oximeter Pulse Oximetry (%) 96 Oxygen Delivery Method Room Air Intake Visit Reasons: EST/ RESPITORY INFECTION/SAME SYMPTOMS 3wks later Intake Note: Patient complaining of coughing, headache x 3 weeks Patient Tobacco Use Status: Never used Tobacco Demi Chef Required: No Allergies No Known Allergies Allergy (Verified 09/01/24 11:35) Medication List - Last Reconciled 09/01/24 by Tg Jovel, [facility] albuterol sulfate 90 mcg/actuation (ProAir HFA) 2 puffs inhalation Q4-6H PRN clonidine HCl 0.1 mg PO BEDTIME diclofenac sodium 75 mg PO BID lorazepam 1 mg PO DAILY PRN omeprazole 0 mg PO BID oxycodone 5 mg PO QID PRN prednisone 50 mg PO DAILY 5 days trazodone 100 mg PO BEDTIME PRN Do you need a note to return to daycare/school/sports/work: No HPI HPI Comments History of Present Illness Details 54-year-old male with interstitial lung disease here today complaining of a cough that has been present for several weeks. I saw him about 3 weeks ago for flu-like symptoms. The note from 08/20/2024 was reviewed. At that time he reported flu-like symptoms that started 3 days ago. Reports that his symptoms include sinus pressure, pressure behind his eyes, headache, dry cough. He has been using Sudafed, Mucinex PO, NyQuil and Mucinex nasal spray to help with his symptoms. Reports that his throat is sore only from coughing. He denies any ear pain. Was treated with steroids and cough syrup. Viral swab was negative. He reports that he continues with a cough. Feels like he has witnessed in his chest. Continues to take an expectorant without any relief. Use the cough syrup but reports that there was not enough to even be effective. He was managed by pulmonology. He canceled his last appointment as he was sick. His next follow up is not scheduled until December. He was using his albuterol inhalers with no relief. Exam Awake alert NAD RRR LS CTAB, dry hacking cough during exam, no distress Plan Check chest x-ray and follow up with patient once results are back. Otherwise continue supportive care. Recommend follow up with inside outside sales representative sooner rather than later given the history of interstitial lung disease and a cough for 3 weeks. He has to go to [place] today so will get Xray done at later date. He wants to be called w/ results once available This note is constructed using voice recognition software. While every effort has been made to ensure accuracy in university teacher, still errors may have been included Sometimes, these errors may affect the content or meaning of the given sentence . Total time spent caring for the patient today was 30 minutes. This includes time spent before the visit reviewing the chart, time spent during the visit, and time spent after the visit on documentation [facility] Social History Patient Tobacco Use Status: Never used Tobacco Physical Exam Vital Signs: Last Vital Signs Pulse 95 09/01/24 11:13 Resp 14 09/01/24 11:13 BP 124/84 09/01/24 11:13 Pulse Ox 96 09/01/24 11:13 Oxygen Delivery Method Room Air 09/01/24 11:13 BMI result Body Mass Index 36.4 Immunizations Boostrix Tdap 2.5 Lf unit-8 mcg-5 Lf/0.5 mL intramuscular syringe Performing Provider: MADI Romero Performing Location: [facility] Administered by: Karena Walden RN on 09/01/24 11:28 Dose Route Admin Location Dispensed Lot Number Expiration Date [employer] Crew Member 0.5 mL IM Right Deltoid 0.5 mL [id number] 07/12/25 93612-887-56 [employer] VIS Given Date VIS Provided VIS Publication Date 09/01/24 Single Vaccine 21 Eligibility Eligibility Date Funding Source Not [facility] Eligible 09/01/24 Private Assessment & Plan Assessment & Plan (1) Interstitial lung disease: Comment: managed by Pulm per patient Code(s): J84.9 - Interstitial pulmonary disease, unspecified Plan: . (2) Cough: Code(s): R05.9 - Cough, unspecified Qualifiers: Cough type: subacute Qualified Code(s): R05.2 - Subacute cough Plan: . Plan . Orders: Orders TDaP Immunization Today Z23 - Encounter for immunization XR chest 2V Today J84.9 - Interstitial pulmonary disease, unspecified, R05.9 - Cough, unspecified Coding Level of Care Code Est Pt Level 4 (55480) Diagnoses Interstitial lung disease J84.9 Subacute cough R05.2 Cough type: subacute
[2024-09-01 11:13] VITALS: BP 124/84; PULSE 95; RESP 14; O2SAT 96; BMI 36.4
== END ==
LOC: HO.HMCWIW 10:58
PROVIDERS: Visit Provider Nurse Practitioner Family
DX: J84.9 Interstitial pulmonary disease, unspecified (principal); R05.2 Subacute cough; Z23 Encounter for immunization